=== PATIENT | male | born 2000 | race Caucasian/White ===

== ENCOUNTER 2019-10-13 19:08 | Emergency (ER) | payer OTHER ==
[~2019-10-13] VITALS: Ht 170.2 cm; Wt 59.0 kg
[~2019-10-13 19:08] MED LIST: ERYT1OIN RIGHTEYE
== END 2019-10-13 20:48 | disposition home or self-care (01) ==
LOC: ER 19:08
DX: S01.01XA Laceration without foreign body of scalp, initial encounter (principal); S61.211A Laceration without foreign body of left index finger without damage to nail, initial encounter; S61.412A Laceration without foreign body of left hand, initial encounter; S40.812A Abrasion of left upper arm, initial encounter; S50.312A Abrasion of left elbow, initial encounter; S80.211A Abrasion, right knee, initial encounter; Z23 Encounter for immunization; V86.59XA Driver of other special all-terrain or other off-road motor vehicle injured in nontraffic accident, initial encounter
CPT/HCPCS: 12001; 90471; 90714; 99283-25; A9270

== ENCOUNTER 2022-06-28 14:17 | Emergency (ER) | payer OTHER ==
[~2022-06-28] VITALS: Ht 177.8 cm; Wt 63.5 kg
== END 2022-06-28 16:08 | disposition home or self-care (01) ==
LOC: ER 14:17
DX: H61.21 Impacted cerumen, right ear (principal)
CPT/HCPCS: 99282; A9270